=== PATIENT | female | born 1960 | race Caucasian/White ===

== ENCOUNTER 2020-10-03 12:01 | Emergency (ER) | payer OTHER, MEDICAID ==
[~2020-10-03] VITALS: Ht 152.4 cm; Wt 59.0 kg
[2020-10-03] MEDS ORDERED: CYCLOBENZAPRINE5 M3 PO (13:29)
[2020-10-03] MEDS ORDERED: PREDNISONE50 MG PO (13:29)
== END 2020-10-03 13:49 | disposition home or self-care (01) ==
LOC: ED 12:01
DX: S76.012A Strain of muscle, fascia and tendon of left hip, initial encounter (principal); M54.5 Low back pain; Z98.890 Other specified postprocedural states; Z98.51 Tubal ligation status; X50.1XXA Overexertion from prolonged static or awkward postures, initial encounter; Y93.89 Activity, other specified; Y92.89 Other specified places as the place of occurrence of the external cause; Y99.8 Other external cause status

== ENCOUNTER → 2023-08-26 | Outpatient (CLI) | payer OTHER, MEDICAID ==
[~2023-08-26] MED LIST: CYCLOBENZAPRINE5 M3 PO; PREDNISONE50 MG PO
[2023-08-26 09:17] LABS: BASO # 0.1 10*3/uL (0.0-0.1); BASO % 0.9 % (0.0-1.0); EOS # 0.2 10*3/uL (0.0-0.4); EOS % 3.8 % (1.0-4.0); HEMATOCRIT 35.2 % (37.0-47.0); LYMPH # 2.1 10*3/uL (1.3-4.4); MEAN CELL VOLUME 90.3 fl (81.0-99.0); MEAN CORPUSCULAR HGB 30.5 pg (27.0-31.0); MEAN CORPUSCULAR HGB CONC 33.8 g/dl (33.0-37.0); MEAN PLATELET VOLUME 9.3 fl (9.6-12.3); MONO # 0.5 10*3/uL (0.1-1.0); MONO % 8.6 % (3.0-9.0); NEUT # 2.9 10*3/uL (2.3-7.9); NEUT % 50.2 % (47.0-73.0); PLATELET COUNT AUTOMATED 346 10*3/uL (130-400); RED CELL DISTRI WIDTH 13.5 % (0-14.5); WHITE BLOOD COUNT 5.7 10*3/uL (4.8-10.8)
[2023-08-26 09:27] LABS: URINE CREATININE RANDOM 67.81 mg/dL
[2023-08-26 09:38] LABS: ALKALINE PHOSPHATASE 106 U/L (46-116); BUN 14 mg/dl (9-23); CHLORIDE 103 mmol/L (98-107); CHOLESTEROL 253 mg/dL (<200); LDL CHOLESTEROL 138 mg/dL (9-159); POTASSIUM 4.1 mmol/L (3.4-5.1); SGPT/ALT 16 U/L (5-49); TRIGLYCERIDES 291 mg/dl (<150)
== END | disposition home or self-care (01) ==
LOC: LAB 08:27
PROVIDERS: Family Medicine; ATTEND Physician Assistant
DX: E11.65 Type 2 diabetes mellitus with hyperglycemia (principal); N63.24 Unspecified lump in the left breast, lower inner quadrant; Z98.890 Other specified postprocedural states; Z98.82 Breast implant status; Z85.3 Personal history of malignant neoplasm of breast